=== PATIENT | female | born 1970 | race Caucasian/White ===

== ENCOUNTER 2016-06-23 11:07 | Day surgery (SDC) | payer BC ==
[~2016-06-23] VITALS: Ht 165.1 cm; Wt 72.6 kg
[~2016-06-23 11:07] MED LIST: ASCORBIC ACID500 M3 PO; CHEWABLE-VITE1 EACH PO; CYANOCOBALAM1000 MCG PO; CYMBALTA60 MG PO; FLEXERIL10 MG PO; HYDROCHLOROTH12.5 M3 PO; IRBESARTAN150 MG PO; MIRENA52 MG IY; NEURONTIN300 MG PO; OXYCODONE HCL5 MG PO; PHENERGAN-CODE120 ML PO; PREDNISONE20 MG PO; PROVENTIL HFA6.7 GM IH; REQUIP0.25 MG PO; VALTREX50 MG/ML PO; VITAMIN D1000 INTUN PO; VITAMIN D400 UNIT PO; ZANAFLEX2 M1 PO; ZITHROMAX Z-PA250 MG PO
== END 2016-06-23 12:45 | disposition home or self-care (01) ==
LOC: PAIN 11:07 → SDC 11:45 → PAIN 12:45
DX: M46.1 Sacroiliitis, not elsewhere classified (principal); F41.9 Anxiety disorder, unspecified; M53.3 Sacrococcygeal disorders, not elsewhere classified; M47.26 Other spondylosis with radiculopathy, lumbar region; M48.06 Spinal stenosis, lumbar region; Z79.891 Long term (current) use of opiate analgesic; Z87.891 Personal history of nicotine dependence; I10 Essential (primary) hypertension; E78.5 Hyperlipidemia, unspecified; Z88.5 Allergy status to narcotic agent; Z88.8 Allergy status to other drugs, medicaments and biological substances
CPT/HCPCS: J2250; J3010

== ENCOUNTER 2016-08-04 18:46 | Observation (INO) | payer BC ==
[~2016-08-04] VITALS: Ht 165.1 cm; Wt 75.5 kg
[2016-08-04 19:19] LABS: HEMATOCRIT 42.8 % (36.0-46.0); MCH 28.5 PG (29.0-34.0); MCHC 32.7 G/DL (30.0-36.0); MCV 87.2 FL (83-99); MEAN PLAT.VOLUME 10.4 uM^3 (9.5-12.4); PLATELET COUNT 299 K/uL (156-360); RBC DIS.WIDTH-CV 12.9 % (11.8-14.6); RBC DIS.WIDTH-SD 40.8 % (39-53); RED BLOOD COUNT 4.91 M/uL (3.80-5.20); WHITE BLOOD COUNT 8.5 K/uL (4.1-10.2)
[2016-08-04 19:27] LABS: CHLORIDE 105 mEq/L (99-109); POTASSIUM 3.4 mEq/L (3.7-5.4); SODIUM 139 mEq/L (136-147)
[2016-08-04 19:29] LABS: GLUCOSE 73 mg/dL (70-99)
[2016-08-04 19:31] LABS: ANION GAP 9 MEQ/L (2-14)
[2016-08-04 19:33] LABS: GFR ESTIMATE (CALCULATED) > 59 mL/min/
[2016-08-04 19:34] LABS: UREA NITROGEN (BUN) 13 mg/dL (9-23)
[2016-08-04] MEDS ORDERED: TYLENOL EXTRA500 MG PO (21:21)
[2016-08-05 00:12] VITALS: BP 149/85
[2016-08-05 02:30] LABS: HDL CHOLESTEROL 53 MG/DL (Desirable>=50); LDL CHOLESTEROL 134 mg/dL (Desirable<100); NON-HDL CHOLESTEROL 159 mg/dL (Desirable<160); TOTAL CHOLESTEROL 212 mg/dL (Desirable<200); TRIGLYCERIDES 127 MG/DL (Normal: <150)
[2016-08-05 05:01] VITALS: BP 123/68
[2016-08-05 05:25] LABS: HEMATOCRIT 38.9 % (36.0-46.0); MCH 28.8 PG (29.0-34.0); MCHC 32.9 G/DL (30.0-36.0); MCV 87.6 FL (83-99); MEAN PLAT.VOLUME 10.7 uM^3 (9.5-12.4); PLATELET COUNT 285 K/uL (156-360); RED BLOOD COUNT 4.44 M/uL (3.80-5.20); WHITE BLOOD COUNT 9.5 K/uL (4.1-10.2)
[2016-08-05 05:46] LABS: ALKALINE PHOSPHATASE 61 IU/L (3-129); ANION GAP 10 MEQ/L (2-14); CHLORIDE 106 MEQ/L (99-109); GFR ESTIMATE (CALCULATED) > 59 mL/min/; GLUCOSE 89 mg/dL (70-99); POTASSIUM 3.5 MEQ/L (3.7-5.4); SAMPLE HEMOLYSIS CHECK 0; SAMPLE ICTERIC CHECK 0; SAMPLE LIPEMIA CHECK 0; SODIUM 139 MEQ/L (136-147); TOTAL BILIRUBIN 0.5 MG/DL (0.0-1.0); UREA NITROGEN (BUN) 9 mg/dL (9-23)
[2016-08-05 07:18] LABS: Estimated Average Glucose 108 mg/dL (70-123); HEMOGLOBIN A1c (GLYCOHEMOGLOB) 5.4 % HGB (Below 5.7)
[2016-08-05 07:37] VITALS: BP 118/61
[2016-08-05 15:54] VITALS: BP 120/76
[2016-08-05] MEDS ORDERED: PRAVASTATIN SOD40 MG PO (17:51)
[2016-08-05] MEDS ORDERED: ASPIR-LOW81 MG PO (17:51)
== END 2016-08-05 18:25 | disposition home or self-care (01) ==
LOC: EME 18:46 → EDOF 22:44 → 4EAST 22:44
PROVIDERS: Internal Medicine
DX: G45.9 Transient cerebral ischemic attack, unspecified (principal); E87.6 Hypokalemia; M79.7 Fibromyalgia; J45.909 Unspecified asthma, uncomplicated; R06.00 Dyspnea, unspecified; R51 Headache; H53.8 Other visual disturbances
CPT/HCPCS: 70450; 70544; 70549; 70551; 71020; 80048; 80053; 80061; 83036; 85027; 92610 GN; 93005; 93306; 99281; 99284; G0378; G8978 GP CH; G8979 GP CH; G8980 GP CH; G8987 GO CH; G8988 GO CH; G8989 GO CH; J1644; J2060